=== PATIENT | female | born 1965 | race Caucasian/White ===

== ENCOUNTER 2016-06-14 06:31 | Day surgery (SDC) | payer OTHER ==
[2016-06-08 12:37] VITALS: BMI 20.7
[2016-06-14] MEDS ORDERED: GENTAMICIN SO4 80 MG/2 ML VIAL ONE (07:17)
[2016-06-14] MEDS ORDERED: ceFAZolin SODIUM 1 GM VIAL ONE ×2 (07:17→08:07)
[2016-06-14] MEDS ORDERED: LIDOCAINE HCL 1%, 10 MG/ML (20ML VIAL) ONE (07:18)
[2016-06-14] MEDS ORDERED: EPINEPHrine/PF 1 MG/1 ML (1:1,000) AMPULE ONE (07:18)
[2016-06-14] MEDS ORDERED: LIDOCAINE 1%-EPI 1:100,000 30 ML MDV IJ ONE (07:18)
[2016-06-14] MEDS ORDERED: SCOPOLAMINE HYDROBROMIDE 1 PATCH PATCH.TD72 ONE (07:33)
[2016-06-14] MEDS ORDERED: MIDAZOLAM HCL 2 MG/2 ML SINGLE DOSE VIAL ONE (07:33)
[2016-06-14] MEDS ORDERED: SUCCINYLCHOLINE CHLORIDE 200 MG/10 ML VIAL ONE (07:39)
[2016-06-14] MEDS ORDERED: PROPOFOL 20 ML ONE ×2 (07:39→09:32)
[2016-06-14] MEDS ORDERED: LIDOCAINE HCL/PF 2% SDV 5ML VIAL ONE ×2 (07:39→09:32)
[2016-06-14] MEDS ORDERED: DEXAMETHASONE SOD PHOSPHATE 4 MG/1 ML VIAL ONE ×2 (07:40→10:12)
[2016-06-14] MEDS ORDERED: ONDANSETRON 4 MG/2 ML VIAL ONE ×2 (07:40→10:12)
[2016-06-14] MEDS ORDERED: ROCURONIUM BROMIDE 50 MG/5 ML VIAL ONE ×2 (07:40→08:59)
[2016-06-14] MEDS ORDERED: GLYCOPYRROLATE 0.2 MG/1 ML VIAL ONE (10:12)
[2016-06-14] MEDS ORDERED: NEOSTIGMINE METHYLSULFATE 0.5 MG/ML - 10 ML MDV ONE (10:12)
[2016-06-14] MEDS ORDERED: oxyCODONE HCL 5 MG TABLET ONE (13:25)
[2016-06-14] MEDS: oxyCODONE HCL 5 MG TABLET PO PRN ×2 (13:25→14:11)
[2016-06-14] MEDS ORDERED: ONDANSETRON 4 MG/2 ML VIAL IVPUSH PRN (13:51)
[2016-06-14] MEDS ORDERED: PROMETHAZINE HCL 25 MG/1 ML VIAL IVPUSH PRN (13:51)
[2016-06-14] MEDS ORDERED: LACTATED RINGERS SOLUTION 1,000 ML IV SCH (14:00)
[2016-06-14] MEDS ORDERED: HYDROmorphone *PCA* 10MG/50ML DISP.SYRIN PCA ONE (14:27)
[2016-06-14 15:28] VITALS: BP 114/76
[2016-06-14 15:31] VITALS: PULSE 85; TEMP 99
--- NOTE | 2016-06-15 21:07 | OP ---
DATE OF OPERATION: 06/14/2016 SURGEON: Annie Quinones MD BACON SLICER SURGEON: MEME Walden PREOPERATIVE DIAGNOSES: 1. Bilateral acquired chest wall deformity, status post bilateral mastectomy for cancer. 2. Asymmetry of reconstructed chest wall. 3. Implant malposition, for reconstruction. POSTOPERATIVE DIAGNOSES: 1. Bilateral acquired chest wall deformity, status post bilateral mastectomy for cancer. 2. Asymmetry of reconstructed chest wall. 3. Implant malposition, for reconstruction. OPERATIVE PROCEDURE: 1. Right breast reconstruction with other technique. 2. Left breast reconstruction with other technique. 3. Right breast capsulectomy, removal and replacement of right breast implant. 4. Left breast capsulectomy, removal and replacement of left breast implant. OPERATIVE INDICATION: The patient is a young woman who underwent previous reconstruction of her breasts approximately 7 years ago and now presents with the above asymmetry and requires reconstruction with the above procedures. Risks and benefits of surgical versus nonsurgical alternatives as well as material complications were described to the patient on multiple occasions preoperatively as well as today in the holding area, with her in attendance, and she was marked in the standing position for outline of the reconstruction. OPERATIVE PROCEDURE IN DETAIL: The patient was taken to the operating room and after induction of general anesthesia in supine position, both arms were extended and padded. Venodyne boots were placed. The entire abdomen and chest wall, breasts, abdomen were prepped with ChloraPrep solution over their entire extent. Once this was accomplished, sterile drapes were placed in the usual fashion, and time-out. At this point, attention was turned to the mastectomy scars. These were injected with 1% local lidocaine anesthesia with 1:100,000 epinephrine, as well as the abdominal wall for reconstructive purposes. At this point, an incision was made into the mastectomy scar of the right breast and carried down through the deep subcutaneous tissue into the area of the capsule. The capsule in the right breast was opened and capsulectomy performed. The implant of the right breast was removed and sent for pathologic diagnosis. At this point, after copious irrigation and adjustment of the pocket for reconstructive purposes, a new implant was chosen for the right breast. This was a Natrelle Inspira cohesive breast implant of 385 mL volume. This was placed into the right breast pocket after triple antibiotic solution irrigation and hemostasis. Lots of tissue were removed from the right breast in the inferior pole, with a large amount of scar deformity seen in these areas. The tissue was sent for pathologic diagnosis to rule out breast cancer. The exact same procedure was carried out symmetrically on the opposite left breast by also opening the breast pocket, removing lots of inferior pole tissue, and replacement of the implant with the same Natrelle Inspira cohesive breast implant , style SCF, 385 mL volume. Once this was placed, the patient was placed into sitting position, good shape and contour was seen, and attention was turned to the abdominal wall. A long incision was made in the lower abdomen and tissue was harvested from the lower abdomen, from the pubis up to the umbilicus for reconstructive purposes. This was transferred to the back table, cleansed, washed and prepared for reconstruction. The abdominal wall was repaired in multiple layers using 2-0 Vicryl suture in deep tissue as well as subcutaneous tissue with 3-0 PDS and 4-0 Biosyn. The tissue was then transferred to the right breast for reconstruction with other technique into the right breast superior, medial, central, and lateral portions, and then independently into the left breast in the superior, medial, and lateral portions of the left breast. At this point the wounds on the mastectomy scars were closed in multiple layers using 2-0 PDS suture in the deep areas, 3-0 PDS in the deep dermis, and 4-0 subcuticular sutures in the skin. All wounds were dressed sterilely with Steri-Strips, fluff dressings, and a Surgi-Bra. She tolerated procedure well. She went to the recovery room in satisfactory condition after being placed into an abdominal binder. ANNIE QUINONES M.D. [id number]
--- NOTE | 2016-06-16 12:46 | PATH ---
Surgical Pathology Report Patient Name: EMILY AKHTAR [facility]. Rec. #: [id number] /Age/Gender: 1965 (Age: 51) / F Account: [id number] Location: [facility] AMBULATORY Taken: 06/14/2016 Received: 06/14/2016 Reported: 06/16/2016 Physicians: Carlos Quinones Specimen(s) Received A: RIGHT AND LEFT BREAST IMPLANTS B: RIGHT BREAST TISSUE C: LEFT BREAST TISSUE D: ABDOMINAL SKIN AND FAT Clinical History History of breast cancer and mastectomy bilaterally Final Diagnosis A. IMPLANTS, RIGHT AND LEFT BREAST, EXCHANGE: BREAST IMPLANT x2 (GROSS EXAM). B. BREAST TISSUE, RIGHT: BENIGN BREAST TISSUE WITH FIBROCYSTIC CHANGE. BENIGN SKIN. C. BREAST TISSUE, LEFT: BENIGN BREAST TISSUE. BENIGN SKIN. D. ABDOMINAL SKIN AND FAT: SKIN AND SUBCUTANEOUS FAT (GROSS EXAM). Electronically Signed Alexandr Salcedo M.D. Gross Description A. Received fresh labeled "right and left breast implant" are 2 clear, rubbery, disc-shaped objects, consistent with breast implants. The breast implants average 12 cm in diameter and 3.5 cm in depth. No soft tissue is present. No sections are submitted, gross only. B. Received in formalin labeled "right breast tissue" is a 46 g, 10.0 x 5.8 x 2.2 cm aggregate of multiple san-yellow, irregular, unoriented portions of fibroadipose tissue and san, unremarkable skin. Sectioning reveals foci of white fibrous tissue. No definitive masses are identified. Billing Department Supervisor sections are submitted in 3 cassettes. C. Received in formalin labeled "left breast tissue" is a 73 g, 12.5 x 87.8 x 2.2 cm aggregate of multiple san-yellow, irregular, unoriented portions of fibroadipose tissue and san, unremarkable skin. Sectioning reveals foci of white fibrous tissue. No definitive masses are identified. Billing Department Supervisor sections are submitted in 2 cassettes. D. Received in formalin labeled "abdominal skin and fat" is a 281 g aggregate of 2 san, triangular, unoriented portions of skin with underlying soft tissue averaging 15.5 x 10.5 x 2.7 cm. One of the portions of skin displays a heart tattoo. The underlying soft tissue displays unremarkable yellow, lobulated fat. No sections are submitted, gross only. DL/06/15/2016 [facility]/06/15/2016
== END 2016-06-14 15:15 | disposition home or self-care (01) ==
LOC: FASU 06:31
PROVIDERS: ATTEND Plastic Surgery
PROC: 0HRV07Z Replacement of Bilateral Breast with Autologous Tissue Substitute, Open Approach (ICD-10-PCS; 2016-06-14)
PROC: 0HPU0JZ Removal of Synthetic Substitute from Left Breast, Open Approach (ICD-10-PCS; principal; 2016-06-14 08:36)
PROC: 0HPT0JZ Removal of Synthetic Substitute from Right Breast, Open Approach (ICD-10-PCS; 2016-06-14 08:36)
PROC: 0HRV0JZ Replacement of Bilateral Breast with Synthetic Substitute, Open Approach (ICD-10-PCS; 2016-06-14 08:36)
DX: M95.4 Acquired deformity of chest and rib (principal); Z90.12 Acquired absence of left breast and nipple; N65.0 Deformity of reconstructed breast; T85.42XA Displacement of breast prosthesis and implant, initial encounter; Y83.8 Other surgical procedures as the cause of abnormal reaction of the patient, or of later complication, without mention of misadventure at the time of the procedure; Y92.9 Unspecified place or not applicable
CPT/HCPCS: 84703; 88300-TC; 88305-TC; 94760